=== PATIENT | female | born 1985 | race Caucasian/White ===

== ENCOUNTER 2016-04-07 16:09 | Emergency (ER) | payer OTHER ==
[2016-04-07 16:26] VITALS: RESP 16
--- NOTE | 2016-04-07 17:16 | EDPHY ---
[id number] 4d 1-7 Days Ago Current Tetanus/Diphtheria Vaccine: Yes Current Tetanus Diphtheria and Acellular Pertussis (TDAP): Yes Tetanus Vaccine Date: 04/02/15 - Medical/Surgical History Hx Asthma: No Hx Chronic Respiratory Disease: No Hx Diabetes: No Hx Cardiac Disease: No Hx Renal Disease: No Hx Cirrhosis: No Hx Alcoholism: No Hx HIV/AIDS: No Hx Splenectomy or Spleen Trauma: No Other PMH: DENIES - Social History Smoking Status: Never smoked HPI/ROS: Chief complaint: Cold symptoms History of present illness: This is a 30-year-old female who presents to the emergency department for evaluation of cold symptoms. Patient reports she has had symptoms for the last 24 hours. She primarily reports a sore throat and body aches. She did see her primary care doctor who started her on a Z-Gurmeet, she has taken 2 days of the antibiotics. She continues to feel unwell. She denies other associated signs or symptoms: No fever, no productive cough, no rash. (Usama Kay) - Physical Exam Exam: General Appearance: Alert, nontoxic. Eyes: Pupils equal and round no injection. ENT: Tympanic membranes, external auditory canals, external ears and surrounding soft tissue including over the mastoids are unremarkable. Nasopharynx is not injected. There is no rhinorrhea. Oropharynx is injected. There is no edema. There is no exudate. There is no asymmetry. The uvula is midline. No elevation of the tongue. There is no hoarseness, no drooling, no trismus, no stridor. Respiratory: Chest is non tender, lungs are clear to auscultation. Cardiac: regular rate and rhythm Gastrointestinal: Abdomen is soft and non tender, no masses, bowel sounds normal. Musculoskeletal: Neck is supple and non tender. Extremities have full range of motion and are non tender. Skin: No rashes or lesions. (Usama Kay) Constitutional: Initial Vital Signs Temperature (C) 37.2 C 04/07/16 16:23 Heart Rate 95 04/07/16 16:23 Respiratory Rate 16 04/07/16 16:23 Blood Pressure 98/60 L 04/07/16 16:23 O2 Sat (%) 97 04/07/16 16:23 O2 Delivery Mode Room Air Allergies/Adverse Reactions: No Known Allergies Allergy (Verified 04/07/16 16:23) Home Medications: Medication Instructions Recorded Estrogen/Progesterone 03/08/16 Medical Decision Making ED Course/Re-evaluation: Patient seen under the supervision of my secondary supervising physician Dr. Juan F Melchor. Patient presents to the emergency department for cold symptoms. Patient is nontoxic. Flu swab is negative. I believe she is appropriate for outpatient management. She is asked to continue to take her Z-Gurmeet until finished. Home care is discussed. She is to follow up with her primary care doctor for recheck. Strict return precautions are given. Patient voiced understanding and agreement with plan. (Usama Kay) I did not see this patient while she was in the emergency department. However her care was discussed with the PA while the patient was in the department. I agree with treatment plan and management (Juan F Melchor) - Data Points Laboratory Results: 04/07/16 16:40 Influenza Typ A,B (DFA) NEGATIVE FOR FLU (NEGATIVE) Departure - Departure Disposition: Home, Routine, Self-Care Clinical Impression: URI (upper respiratory infection) Condition: Good Instructions: Upper Respiratory Infection (ED) Additional Instructions: Follow-up with her primary care doctor for recheck If symptoms worsen or new symptoms develop return to the emergency department for recheck Referrals: Ck Law MD [Primary Care Provider] - As per Instructions
[2016-04-07 17:31] VITALS: BP 105/65; PULSE 75; TEMP 98.1; O2SAT 99
== END 2016-04-07 17:30 | disposition home or self-care (01) ==
DX: J06.9 Acute upper respiratory infection, unspecified (principal)

== ENCOUNTER 2016-06-06 16:20 | Emergency (ER) | payer OTHER ==
[2016-06-06 16:29] VITALS: RESP 16; TEMP 97.5; O2SAT 98
--- NOTE | 2016-06-06 16:48 | EDPHY ---
H & P Stated Complaint: 5 week pregant vag bleed x 1 hour Time Seen by Provider: 06/06/16 16:29 HPI/ROS: Chief complaint: , vaginal bleeding HPI: 30-year-old who is 6 weeks from a single embryo transfer IVF by Dr. Gunn at [facility]. Patient is presenting with vaginal bleeding for the last 0.5 hours. She is not eating soaked single pad. No clots. No tissue. Quant HCG 9 days ago was 450. She has not had an ultrasound. She is known Rh negative and has received RhoGAM in the past. No cramping. Did have some sore throat last night and took Tylenol. No fevers or chills. No nausea vomiting ROS: 10 point Review of Systems is negative except as noted in the HPI. Past medical history: Infertility Medications: Estrogen progesterone for support Allergies: No known drug allergies Physical exam: Gen: Awake, Alert, No Distress HEENT: Nose: no rhinorrhea Eyes: PERRLA, EOMI Mouth: Moist mucosa Neck: Supple, no JVD Chest: nontender, lungs clear to auscultation Heart: S1, S2 normal, no murmur Abd: Soft, non-tender, no guarding Back: no CVA tenderness, no midline tenderness Ext: no edema, non-tender Skin: no rash Neuro: CN II-XII intact, Sensation grossly intact, Strength 5/5 in bilateral upper and lower extremities - Personal History LMP (Females 10-55): Current Tetanus/Diphtheria Vaccine: Unsure Current Tetanus Diphtheria and Acellular Pertussis (TDAP): Unsure Tetanus Vaccine Date: 04/02/15 - Medical/Surgical History Hx Asthma: No Hx Chronic Respiratory Disease: No Hx Diabetes: No Hx Cardiac Disease: No Hx Renal Disease: No Hx Cirrhosis: No Hx Alcoholism: No Hx HIV/AIDS: No Hx Splenectomy or Spleen Trauma: No Other PMH: DENIES. one live . one misscarriage - Social History Smoking Status: Never smoked Constitutional: Initial Vital Signs Temperature (C) 36.4 C 06/06/16 16:25 Heart Rate 88 06/06/16 16:25 Respiratory Rate 16 06/06/16 16:25 Blood Pressure 114/62 06/06/16 16:25 O2 Sat (%) 98 06/06/16 16:25 O2 Delivery Mode Room Air Allergies/Adverse Reactions: No Known Allergies Allergy (Verified 04/07/16 16:23) Home Medications: Medication Instructions Recorded Estrogen/Progesterone 03/08/16 Medical Decision Making - Data Points Laboratory Results: 06/06/16 06/06/16 16:47 16:47 Beta HCG, Quant 7947.10 mIU/mL H mIU/mL (0-4.83) Patient ABO/Rh A NEGATIVE Antibody Screen NEGATIVE Departure - Departure Disposition: Home, Routine, Self-Care Clinical Impression: Threatened miscarriage Condition: Good Instructions: Threatened Miscarriage (ED) Additional Instructions: Follow up with your OBGYN doctor in 2 days for further evaluation. Return to the emergency depart for increasing pain, bleeding, uncontrolled nausea or vomiting, or any other concerns. Referrals: Ck Law MD [Primary Care Provider] - As per Instructions
[2016-06-06 18:28] VITALS: BP 120/82; PULSE 84
== END 2016-06-06 18:36 | disposition home or self-care (01) ==
DX: O20.0 Threatened abortion (principal); Z3A.01 Less than 8 weeks gestation of pregnancy

== ENCOUNTER 2016-08-19 07:34 | Emergency (ER) | payer OTHER ==
[2016-08-19 07:46] VITALS: BP 110/64; PULSE 95; RESP 17; TEMP 99.3; O2SAT 96
--- NOTE | 2016-08-19 07:59 | EDPHY ---
H & P Time Seen by Provider: 08/19/16 07:53 HPI/ROS: CHIEF COMPLAINT: Sore throat, cough HISTORY OF PRESENT ILLNESS: The patient is a 30-year-old female presenting with cold-like symptoms for the past two weeks. The patient complains of sore throat , ear pain, cough, and congestion. She states she developed symptoms around the time her 1 year old son also developed symptoms. She has tried multiple over the counter treatments including Mucinex, but has not found any relief. She continues to have sore throat and ear ache. She denies vomiting or diarrhea. No chest pain or shortness of breath REVIEW OF SYSTEMS: A comprehensive 10 point review of systems is otherwise negative aside from elements mentioned in the history of present illness. Past Medical/Surgical History: Denies. Social History: . Here with son. Smoking Status: Never smoked Physical Exam: General Appearance: Alert, pleasant, nontoxic appearing. Eyes: Pupils equal and round, no conjunctival injection ENT, Mouth: Mucous membranes moist, Pharyngeal erythema. Ears: Normal TMs. Neck: Normal inspection Respiratory: Lungs are clear to auscultation Cardiovascular: Regular rate and rhythm Neurological: A&O, nonfocal, normal gait Skin: Warm and dry, no rash Extremities: Normal inspection Psychiatric: Mood and affect normal Constitutional: Initial Vital Signs Temperature (C) 37.4 C 08/19/16 07:43 Heart Rate 95 08/19/16 07:43 Respiratory Rate 17 08/19/16 07:43 Blood Pressure 110/64 08/19/16 07:43 O2 Sat (%) 96 08/19/16 07:43 O2 Delivery Mode Room Air Allergies/Adverse Reactions: No Known Allergies Allergy (Verified 08/19/16 07:42) Home Medications: Medication Instructions Recorded Azithromycin [Zithromax] 250 mg PO DAILY #6 tab 08/19/16 Medical Decision Making ED Course/Re-evaluation: The patient is a 30-year-old female, nontoxic appearing, presenting with sore throat and ear ache. The patient is here with her infant son who also has cold symptoms. She reports painful swallowing and sensation of plugged ears. On exam patient has pharyngeal erythema, TMs are normal. Strep swab is negative. Symptoms are likely viral. I will send the patient home with Azithromycin at pt request. Differential Diagnosis: Differential diagnosis includes but is not limited to pneumonia, otitis media, peritonsillar abscess, retropharyngeal abscess, meningitis. - Data Points Laboratory Results: 08/19/16 08/19/16 Unknown 08:00 Group A Strep Screen NEGATIVE (NEGATIVE) Group A Strep DNA Pending Departure - Departure Disposition: Home, Routine, Self-Care Clinical Impression: Viral syndrome Condition: Good Instructions: Viral Syndrome (ED) Additional Instructions: 1. Adult Pain & Fever Control: We recommend Acetaminophen (Tylenol) and Ibuprofen (Motrin,Advil) for pain and fever control. When fever is high or pain severe, both drugs can be used at the same time, but at different intervals. Please note the time differences. Your dose is: Acetaminophen 650mg every 4 to 6 hours Ibuprofen 600mg every 8 hours with food Note: do not take Acetaminophen with Hydrocodone (Vicodin, Lortab) or Oycodone (Percocet). These medications also contain Acetaminophen. No more than 3000mg of Acetaminophen should be taken in 24 hours (for an adult). 2. Drink plenty of fluids. 3. If you continue to have a sore throat after 3-4 days, start taking the prescribed antibiotic as directed. 3. Followup with your primary care physician if your symptoms do not improve. Referrals: Ck Law MD [Primary Care Provider] - As per Instructions Prescriptions: Azithromycin [Zithromax] 250 mg PO DAILY #6 tab Report Scribed for: Dilma Ayala Report Scribed by: Nataliya Dooley Date of Report: 08/19/16 Time of Report: 07:59 Physician Review and Approval Statement: 08/19/16 07:59 Portions of this note were transcribed by a medical librarian. I personally performed the history, physical exam, and medical decision-making; and confirmed the accuracy of the information in the transcribed note.
== END 2016-08-19 08:36 | disposition home or self-care (01) ==
DX: B34.9 Viral infection, unspecified (principal)

== ENCOUNTER 2016-09-14 03:15 | Emergency (ER) | payer OTHER ==
[2016-09-14 03:22] VITALS: BP 99/61; PULSE 83; RESP 18; TEMP 97.9; O2SAT 98
--- NOTE | 2016-09-14 03:24 | EDPHY ---
H & P Stated Complaint: COLD LIKE SX FOR THE PAST 6 WEEKS. SEEN 2 TIMES HPI/ROS: HPI CHIEF COMPLAINT: Sinus congestion HISTORY OF PRESENT ILLNESS: This patient very pleasant 30-year-old female, she presents emergency room with sinus congestion. She tells me for the past 5-6 weeks she has been sick with upper respiratory tract infection, sinus congestion , she has been seen in the emergency room placed on azithromycin which did give her mild relief. She was followed up with her primary care doctor Dr. Law was placed on another Z-Gurmeet and Decadron recently with mild relief. She presents emergency room with sinus congestion, runny nose. Denies fever. She does tell me her ears feel congested. Denies headache, neck pain. Denies chest pain or shortness of breath or productive cough. She tells me she has been taking Mucinex D, Advil p.m., Flonase, is currently taking azithromycin, also a dose of Decadron recently. Past Medical History: URI, sinus congestion Past Surgical History: No recent surgical history Social History: Denies daily use of drugs alcohol tobacco products Family History: Noncontributory ROS REVIEW OF SYSTEMS: A comprehensive 10 point review of systems is otherwise negative aside from elements mentioned in the history of present illness. Exam Constitutional appears well nontoxic triage nursing summary reviewed, vital signs reviewed, awake/alert. Eyes normal conjunctivae and sclera, EOMI, PERRLA. HENT anterior sinus congestion sinus pain tenderness on palpation, no evidence of cellulitis or significant swelling, posterior pharynx normal, TMs fluid behind both TMs but otherwise unremarkable, moist mucus membranes, no epistaxis, neck supple/ no meningismus, no raccoon eyes. Respiratory clear to auscultation bilaterally, normal breath sounds, no respiratory distress, no wheezing. Cardiovascular rate normal, regular rhythm, no murmur, no edema, distal pulses normal. Gastrointestinal soft, non-tender, no rebound, no guarding, normal bowel sounds, no distension, no pulsatile mass. Genitourinary no CVA tenderness. Musculoskeletal no midline vertebral tenderness, full range of motion, no calf swelling, no tenderness of extremities, no meningismus, good pulses, neurovascularly intact. Skin pink, warm, & dry, no rash, skin atraumatic. Neurologic awake, alert and oriented x 3, AAOx3, moves all 4 extremities equally, motor intact, sensory intact, CN II-XII intact, normal cerebellar, normal vision, normal speech. Psychiatric normal mood/affect. Heme/Lymph/Immune no lymphadenopathy. Differential Diagnosis: Includes but is not limited to in a particular order, upper respiratory tract infection, viral syndrome, allergies, seasonal allergy Medical Decision Making: I recommend the patient follows up with Ear Nose and Throat on outpatient basis. Continue azithromycin as prescribed. Place her on prednisone for 5 days, also recommend continued to her Flonase, and take Claritin D. return emergency room if there is worsening symptoms questions or concerns. She appears well nontoxic. No evidence of fungating mass on exam. She appears well. Vital signs are stable. Follow up with ENT and her primary care doctor drink lots of fluids. She understands. Source: Patient - Personal History LMP (Females 10-55): 1-7 Days Ago Current Tetanus/Diphtheria Vaccine: Yes Current Tetanus Diphtheria and Acellular Pertussis (TDAP): Yes Tetanus Vaccine Date: 04/02/15 - Medical/Surgical History Hx Asthma: No Hx Chronic Respiratory Disease: No Hx Diabetes: No Hx Cardiac Disease: No Hx Renal Disease: No Hx Cirrhosis: No Hx Alcoholism: No Hx HIV/AIDS: No Hx Splenectomy or Spleen Trauma: No Other PMH: DENIES. one live . one misscarriage - Social History Smoking Status: Never smoked Constitutional: Initial Vital Signs Temperature (C) 36.6 C 09/14/16 03:19 Heart Rate 83 09/14/16 03:19 Respiratory Rate 18 09/14/16 03:19 Blood Pressure 99/61 L 09/14/16 03:19 O2 Sat (%) 98 09/14/16 03:19 O2 Delivery Mode Room Air Allergies/Adverse Reactions: No Known Allergies Allergy (Verified 09/14/16 03:21) Home Medications: Medication Instructions Recorded Azithromycin [Zithromax] 250 mg PO DAILY 09/14/16 Loratadine/Pseudoephedrine 1 each PO DAILY #14 tab.er.24h 09/14/16 [Claritin-D 24 Hour Tablet] predniSONE 50 mg PO DAILY #5 tablet 09/14/16 predniSONE [Prednisone] 10 mg PO 09/14/16 Departure - Departure Disposition: Home, Routine, Self-Care Clinical Impression: Sinusitis Qualifiers: Sinusitis location: ethmoidal Chronicity: acute Recurrence: recurrent Qualified Code(s): J01.21 - Acute recurrent ethmoidal sinusitis Condition: Good Instructions: Sinusitis (ED) Additional Instructions: 1. Recommend he follow up with Ear Nose and Throat. 2. Stay well-hydrated. 3. This may be allergies causing sinus congestion. I do recommend he take Claritin-D. 4. Drink lots of water. 5. Continue her azithromycin. I placed her on prednisone for the next 5 days. 6. Follow-up with ENT. Referrals: Ck Law MD [Primary Care Provider] - As per Instructions Ever Brenner MD [Medical Doctor] - As per Instructions Prescriptions: Loratadine/Pseudoephedrine [Claritin-D 24 Hour Tablet] 1 each PO DAILY #14 tab.er.24h predniSONE 50 mg PO DAILY #5 tablet
[2016-09-14] MEDS ORDERED: CETIRIZINE 10 MG TAB PO ONE (03:48)
== END 2016-09-14 03:56 | disposition home or self-care (01) ==
DX: J01.21 Acute recurrent ethmoidal sinusitis (principal)

== ENCOUNTER 2017-04-20 10:00 | Emergency (ER) | payer OTHER ==
[2017-04-20 10:08] VITALS: RESP 18
[2017-04-20] MEDS ORDERED: NS 500 ML IV ONE (10:20)
[2017-04-20 10:29] LABS: PLATELET COUNT 268 10^3/uL (150-400)
[2017-04-20 10:40] LABS: INR 0.96 (0.83-1.16)
--- NOTE | 2017-04-20 11:29 | CPEKG ---
Heart Rate: 74 RR Interval: 811 P-R Interval: 192 QRSD Interval: 76 QT Interval: 376 QTC Interval: 418 P Lottie: 70 QRS Lottie: 72 T Wave Lottie: 30 EKG Severity - BORDERLINE ECG - EKG Impression: SINUS RHYTHM EKG Impression: BORDERLINE T ABNORMALITIES, ANTERIOR LEADS Electronically Signed By: Hakeem Aceves 20-Apr-2017 15:30:22
[2017-04-20 11:31] VITALS: BP 91/68; PULSE 74; O2SAT 99
--- NOTE | 2017-04-20 11:55 | EDPHY ---
H & P Time Seen by Provider: 04/20/17 10:19 HPI/ROS: HPI 11 weeks, shortness of breath today. 31-year-old female , by private vehicle. She is currently 11 weeks . She reports that she woke up this morning and felt normal. She reports that around 9:00 a.m. she started feeling short of breath. She reports that this is a little bit worse with laying flat. She is feeling better now. She reports that she felt a little more short of breath with exertion going up stairs as well. No chest pain. No palpitations. She has had no cough or fever. No prior history of DVT or PE. ROS: Constitutional: No fever, no chills. No weakness. Eyes: No discharge. No changes in vision. ENT: No sore throat. No nasal congestion or rhinorrhea. Respiratory: No cough. As above. Cardiac: No chest pain, no palpitations. Gastrointestinal: No abdominal pain, no vomiting, no diarrhea. Genitourinary: No hematuria. No dysuria or increased frequency with urination. Musculoskeletal: No back pain. No neck pain. No myalgias or arthralgias. Skin: No rashes. Neurological: No headache. No focal weakness or altered sensation. Past medical history: Prior miscarriage. Otherwise no significant past medical history. Primary care physician is Dr. Ck Law who is aware the patient is here. Social history: Nonsmoker . Here by herself currently. No alcohol. Physical Exam: General Appearance: Alert, no distress. This patient is responding to questions appropriately and in full sentences. This patient appears well- hydrated and well-nourished. Eyes: Pupils equal and round no pallor or injection. No lid edema, erythema or injection. Respiratory: There are no retractions, lungs are clear to auscultation with good air movement bilaterally. No tachypnea. Cardiovascular: Regular rate and rhythm. No murmur. Neurological: Motor sensory function is grossly intact. Cranial nerves are normal. Gait is normal. Skin: Warm and dry, no rashes. Musculoskeletal: Neck is supple and nontender. Extremities are symmetrical. All joints range without pain or impingement. Psychiatric: No agitation. No depression. Database: EKG: EKG time is 11:20 a.m.; EKG shows a narrow complex normal sinus rhythm with a ventricular rate of 74. The FL, QRS, QT intervals are within normal limits. There are no ST-T wave changes indicative of ischemic or injury pattern. No evidence of right heart strain. Interpreted by me. Imaging: Procedures: Emergency department course: IV was placed. Her vital signs were reviewed and are normal. She is afebrile. EKG obtained and reviewed by myself. She declines a chest x-ray. 11:45 a.m., patient re-evaluated. Results of blood work discussed. Pulse oximetries have been in the mid to high 90s on room air. Repeat pulmonary exam she is clear on auscultation bilaterally. D-dimer unremarkable. I spoke with her primary care physician Dr. Ck Law. He feels comfortable with her going home. I feel she is safe for discharge. He will follow up closely with her this afternoon and or tomorrow. The patient feels comfortable with this. She is asking for an albuterol inhaler. I explained this is listed as a moderate risk medication for . She understands this. Dosing of this medication was reviewed. Return to emergency department precautions discussed. She was discharged in good condition. Differential Diagnosis: The differential diagnosis on this patient includes but is not limited to transient dyspnea. Congestive heart failure, preeclampsia/eclampsia, pulmonary embolism, acute coronary syndrome, pneumonia, bronchitis, pneumothorax, pericardial effusion unlikely. This represents a partial list of diagnoses considered. These considerations are based on history, physical exam, past history, reassessment and diagnostic testing. Smoking Status: Never smoked Constitutional: Initial Vital Signs Temperature (C) 36.8 C 04/20/17 10:06 Heart Rate 92 04/20/17 10:06 Respiratory Rate 18 04/20/17 10:06 Blood Pressure 96/62 L 04/20/17 10:06 O2 Sat (%) 98 04/20/17 10:06 O2 Delivery Mode Room Air Allergies/Adverse Reactions: No Known Allergies Allergy (Verified 04/20/17 10:05) Home Medications: Medication Instructions Recorded Estrace 04/20/17 04/20/17 Progesterone 04/20/17 Medical Decision Making - Data Points Laboratory Results: Laboratory Results 04/20/17 10:20 04/20/17 10:20 04/20/17 04/20/17 04/20/17 10:20 10:20 10:20 WBC RBC Hgb Hct MCV MCH MCHC RDW Plt Count MPV Neut % (Auto) Lymph % (Auto) [place] % (Auto) Eos % (Auto) Baso % (Auto) Nucleat RBC Rel Count Absolute Neuts (auto) Absolute Lymphs (auto) Absolute Monos (auto) Absolute Eos (auto) Absolute Basos (auto) Absolute Nucleated RBC Immature Gran % Immature Gran # PT 13.0 SEC SEC (12.0-15.0) INR 0.96 (0.83-1.16) APTT 25.5 SEC SEC (23.0-38.0) D-Dimer 0.27 ug/mLFEU ug/mLFEU (0.00-0.50) Sodium 139 mEq/L mEq/L (135-145) Potassium 3.7 mEq/L mEq/L (3.5-5.2) Chloride 103 mEq/L mEq/L (97-110) Carbon Dioxide 22 mEq/l mEq/l (22-31) Anion Gap 14 mEq/L mEq/L (8-16) BUN 6 mg/dL L mg/dL (7-23) Creatinine 0.6 mg/dL mg/dL (0.6-1.0) Estimated GFR > 60 Glucose 114 mg/dL H mg/dL (70-100) Calcium 9.4 mg/dL mg/dL (8.5-10.4) NT-Pro-B Natriuret Pep 45 pg/mL pg/mL (0-125) Beta HCG, Qual POSITIVE 04/20/17 10:20 WBC 7.21 10^3/uL 10^3/uL (3.80-9.50) RBC 4.35 10^6/uL 10^6/uL (4.18-5.33) Hgb 14.1 g/dL g/dL (12.6-16.3) Hct 40.3 % % (38.0-47.0) MCV 92.6 fL fL (81.5-99.8) MCH 32.4 pg pg (27.9-34.1) MCHC 35.0 g/dL g/dL (32.4-36.7) RDW 12.3 % % (11.5-15.2) Plt Count 268 10^3/uL 10^3/uL (150-400) MPV 9.4 fL fL (8.7-11.7) Neut % (Auto) 59.6 % % (39.3-74.2) Lymph % (Auto) 30.4 % % (15.0-45.0) [place] % (Auto) 6.4 % % (4.5-13.0) Eos % (Auto) 2.8 % % (0.6-7.6) Baso % (Auto) 0.4 % % (0.3-1.7) Nucleat RBC Rel Count 0.0 % % (0.0-0.2) Absolute Neuts (auto) 4.30 10^3/uL 10^3/uL (1.70-6.50) Absolute Lymphs (auto) 2.19 10^3/uL 10^3/uL (1.00-3.00) Absolute Monos (auto) 0.46 10^3/uL 10^3/uL (0.30-0.80) Absolute Eos (auto) 0.20 10^3/uL 10^3/uL (0.03-0.40) Absolute Basos (auto) 0.03 10^3/uL 10^3/uL (0.02-0.10) Absolute Nucleated RBC 0.00 10^3/uL 10^3/uL (0-0.01) Immature Gran % 0.4 % % (0.0-1.1) Immature Gran # 0.03 10^3/uL 10^3/uL (0.00-0.10) PT INR APTT D-Dimer Sodium Potassium Chloride Carbon Dioxide Anion Gap BUN Creatinine Estimated GFR Glucose Calcium NT-Pro-B Natriuret Pep Beta HCG, Qual Medications Given: Discontinued Medications Sodium Chloride (Ns) 500 mls @ 1,000 mls/hr IV EDNOW ONE PRN Reason: Protocol Stop: 04/20/17 10:49 Last Admin: 04/20/17 10:28 Dose: 500 mls Departure - Departure Disposition: Home, Routine, Self-Care Clinical Impression: , Transient dyspnea Condition: Good Instructions: Dyspnea (ED) Additional Instructions: Read and follow provided instructions. Follow-up with your primary care physician, Dr. Ck Law, tomorrow for re- evaluation as discussed. Take medication as prescribed. Albuterol meter dose inhaler: 1-2 puffs every 4 hr as needed for shortness of breath. Return to the emergency department for worsening shortness of breath, fever, chest pain, palpitations, cough or other serious concerns. Referrals: Ck Law MD [Primary Care Provider] - As per Instructions
[2017-04-20] MEDS ORDERED: ALBUTEROL INH PREPACK MDI TAKEHOME ONE ×2 (12:01→12:02)
[2017-04-20 12:07] VITALS: TEMP 98.6
== END 2017-04-20 12:07 | disposition home or self-care (01) ==
DX: O99.89 Other specified diseases and conditions complicating pregnancy, childbirth and the puerperium (principal); R06.00 Dyspnea, unspecified; E86.9 Volume depletion, unspecified; Z3A.11 11 weeks gestation of pregnancy

== ENCOUNTER → 2017-06-28 | Outpatient (CLI) | payer OTHER | LOC: FIMAGING 13:13 | PROVIDERS: ATTEND Hospitalist | DX: O09.812 Supervision of pregnancy resulting from assisted reproductive technology, second trimester (principal); O43.122 Velamentous insertion of umbilical cord, second trimester; Z3A.20 20 weeks gestation of pregnancy ==

== ENCOUNTER 2017-10-27 06:13 | Day surgery (SDC) | payer OTHER ==
[2017-10-27 06:53] LABS: PLATELET COUNT 244 10^3/uL (150-400)
[2017-10-27] MEDS ORDERED: TERBUTALINE SULFATE 1 MG/ML VIAL ONE (07:05)
[2017-10-27] MEDS ORDERED: OLIVE OIL 118 ML BTL ONE (07:06)
--- NOTE | 2017-10-27 21:10 | GOP ---
[f rep st] OPERATIVE REPORT DATE OF OPERATION: 10/27/2017 SURGEON: Remedios Marina DO PREOPERATIVE DIAGNOSIS: Intrauterine at 37+ weeks gestation, breech presentation. POSTOPERATIVE DIAGNOSIS: Intrauterine at 37+ weeks gestation, breech presentation, plus ba by in cephalic presentation. PROCEDURE PERFORMED: External cephalic version. The procedure was performed by Dr. Marina and Dr. Kwong. FINDINGS: INDICATIONS: The patient is a 32-year-old patient who is 37+ weeks gestation she was recently found to have baby to be presented at the breech presentation and had previously been in the cephalic prese ntation. Adequate fluid was noted. She is 37+ weeks gestation, dilated to 3 cm. Management options were reviewed with the patient. Decision was made to proceed with an external cephalic version. Th e patient was properly consented. We discussed the risk of rupture of membranes causing distre ss, need to do an emergency , as well as failure of procedure and need to proceed with a joanne arean section for delivery if she goes into labor. Risks and benefits of the procedure were reviewed with the patient and her , and the patient was properly consented. DESCRIPTION OF PROCEDURE: After a reactive nonstress test and monitoring, and the patient rece ived IV terbutaline 0.25 mg, status remained reassuring and maternal status remained reassuring . The ultrasound was performed previous to that and confirmed the baby was still in the breech prese ntation. mineral oil was applied to her abdomen and with external pressure, the baby was rotated in a back flip into the cephalic presentation. This was done just with 1 attempt. sta tus remained reassuring during the procedure and after the procedure. She denied any loss of fluid o r vaginal bleeding and she stated good movement. She was monitored for an hour after the proce dure and baby remained reassuring. She was discharged to home after the procedure with labor precaut ions and kick counts. /[id number]/MODL
== END 2017-10-27 09:15 | disposition home or self-care (01) ==
LOC: FOBOP 06:13
PROVIDERS: ATTEND Obstetrics & Gynecology
PROC: 10S0XZZ Reposition Products of Conception, External Approach (ICD-10-PCS; principal; 2017-10-27)
DX: O32.1XX0 Maternal care for breech presentation, not applicable or unspecified (principal); Z3A.37 37 weeks gestation of pregnancy
CPT/HCPCS: J3105

== ENCOUNTER → 2017-11-25 | Outpatient (CLI) | payer OTHER | LOC: FLACT 10:15 | PROVIDERS: ATTEND Obstetrics & Gynecology | DX: Z39.1 Encounter for care and examination of lactating mother (principal) | CPT/HCPCS: G0463 ==